=== PATIENT | female | born 1955 | race Caucasian/White ===

== ENCOUNTER → 2016-06-29 | Outpatient (CLI) | payer BC | END | disposition home or self-care (01) | LOC: RAD 10:13 | DX: J01.01 Acute recurrent maxillary sinusitis (principal) ==

== ENCOUNTER → 2017-09-18 | Outpatient (CLI) | payer BC | END | disposition home or self-care (01) | LOC: MAMMO 02:24 | DX: Z12.31 Encounter for screening mammogram for malignant neoplasm of breast (principal) ==

== ENCOUNTER → 2018-11-28 | Day surgery (SDC) | payer BC ==
[~2018-11-28] VITALS: Ht 170.1 cm; Wt 71.7 kg
[~2018-11-28] MED LIST: CELEXA20 MG PO; SINGULAIR10 M1 PO
[2018-11-28 12:17] VITALS: BP 122/89
[2018-11-28 13:57] VITALS: BP 94/59
[2018-11-28 14:07] VITALS: BP 100/57
[2018-11-28 14:22] VITALS: BP 104/53
== END | disposition home or self-care (01) ==
LOC: SDC 11-27 11:00
DX: Z12.11 Encounter for screening for malignant neoplasm of colon (principal); F41.9 Anxiety disorder, unspecified; F32.9 Major depressive disorder, single episode, unspecified; F17.210 Nicotine dependence, cigarettes, uncomplicated; Z79.899 Other long term (current) drug therapy; Z98.890 Other specified postprocedural states; Z88.8 Allergy status to other drugs, medicaments and biological substances; Z88.0 Allergy status to penicillin; Z88.2 Allergy status to sulfonamides

== ENCOUNTER 2022-11-20 11:15 | Emergency (ER) | payer MEDICARE ==
[~2022-11-20] VITALS: Ht 170.1 cm; Wt 73.9 kg
[2022-11-20 11:22] VITALS: BP 136/95
== END 2022-11-20 12:57 | disposition home or self-care (01) ==
LOC: ED 11:15
DX: S01.21XA Laceration without foreign body of nose, initial encounter (principal); F41.9 Anxiety disorder, unspecified; F32.A Depression, unspecified; Z88.0 Allergy status to penicillin; Z88.2 Allergy status to sulfonamides; Z98.890 Other specified postprocedural states; Z87.891 Personal history of nicotine dependence; W01.198A Fall on same level from slipping, tripping and stumbling with subsequent striking against other object, initial encounter; Y93.89 Activity, other specified; Y92.89 Other specified places as the place of occurrence of the external cause; Y99.8 Other external cause status

== ENCOUNTER → 2024-11-09 | Outpatient (CLI) | payer OTHER | END | disposition home or self-care (01) | LOC: MRI 01:17 | PROVIDERS: ATTEND Orthopaedic Surgery | DX: S83.203A Other tear of unspecified meniscus, current injury, right knee, initial encounter (principal); M25.461 Effusion, right knee; M25.561 Pain in right knee; X58.XXXA Exposure to other specified factors, initial encounter; Y93.9 Activity, unspecified; Y92.89 Other specified places as the place of occurrence of the external cause; Y99.8 Other external cause status ==

== ENCOUNTER → 2024-12-02 | Outpatient (CLI) | payer OTHER ==
[~2024-12-02] MED LIST changes: +GADOTERATE MEGLUMINE 7.5 MMOL/15 ML VIAL IV ONE
== END ==
LOC: MRI 00:13
PROVIDERS: ATTEND Orthopaedic Surgery
DX: M17.11 Unilateral primary osteoarthritis, right knee (principal); M25.461 Effusion, right knee

== ENCOUNTER → 2024-12-10 | Outpatient (CLI) | payer OTHER ==
[~2024-12-10] MED LIST changes: -GADOTERATE MEGLUMINE 7.5 MMOL/15 ML VIAL IV ONE; +Technetium Tc 99M Medronate 1 KIT KIT IV SCH
== END | disposition home or self-care (01) ==
LOC: NM 12-09 10:00
PROVIDERS: ATTEND Orthopaedic Surgery
DX: S83.91XA Sprain of unspecified site of right knee, initial encounter (principal); M17.11 Unilateral primary osteoarthritis, right knee; R93.6 Abnormal findings on diagnostic imaging of limbs; M89.9 Disorder of bone, unspecified; X58.XXXA Exposure to other specified factors, initial encounter; Y93.89 Activity, other specified; Y92.89 Other specified places as the place of occurrence of the external cause; Y99.8 Other external cause status

== ENCOUNTER → 2024-12-18 | Outpatient (CLI) | payer OTHER ==
[~2024-12-18] MED LIST changes: -Technetium Tc 99M Medronate 1 KIT KIT IV SCH
== END | disposition home or self-care (01) ==
LOC: CT 00:10
PROVIDERS: ATTEND Orthopaedic Surgery
DX: M25.461 Effusion, right knee (principal); R93.89 Abnormal findings on diagnostic imaging of other specified body structures